=== PATIENT | male | born 1995 | race African-American/Black ===

== ENCOUNTER 2017-08-19 00:55 | Emergency (ER) | payer OTHER ==
[~2017-08-19 00:55] MED LIST: ALB17R INH; ALB18R IH; ALBU8.5H12 IH; CETI-459 PO; CYCL10TA29 PO; HYDR-385 PO; IBU600 PO; LOR5 PO; LOR5/325 PO; LOR7.5/325 PO; MELO-149 PO; MONT10TA PO; NAPR500T31 PO; NO; ONDA4TAB PO; Return to Work; Return to work; TOBOD OD
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
[2017-08-19] MEDS ORDERED: DIPHTH/TETANUS/ACEL. PERTUSSIS IM ONLY ONE (01:35)
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
[2017-08-19 02:42] VITALS: BP 138/85
== END 2017-08-19 02:53 | disposition home or self-care (01) ==
LOC: ER 01:05
DX: S61.511A Laceration without foreign body of right wrist, initial encounter (principal); S01.111A Laceration without foreign body of right eyelid and periocular area, initial encounter; S01.21XA Laceration without foreign body of nose, initial encounter; S60.222A Contusion of left hand, initial encounter; Z23 Encounter for immunization; Y04.2XXA Assault by strike against or bumped into by another person, initial encounter; Y92.89 Other specified places as the place of occurrence of the external cause
CPT/HCPCS: 90471; 90715; 99283